=== PATIENT | male | born 1965 | race Caucasian/White ===

== ENCOUNTER 2018-02-22 09:22 | Inpatient (IN) | payer OTHER ==
[2018-02-22 09:59] VITALS: BMI 39.6
--- NOTE | 2018-02-22 13:49 | HP ---
CIWA Score - CIWA Score Nausea/Vomitin Muscle Tremors: 4-Moderate,w/Arms Extend Anxiety: 5 Agitation: 4-Moderately Restless Paroxysmal Sweats: 1-Minimal Palms Moist Orientation: 0-Oriented Tacttile Disturbances: 2-Mild Itch/Numbness/Burn (itchy skin) Auditory Disturbances: 0-None Visual Disturbances: 0-None Headache: 0-None Present CIWA-Ar Total Score: 19 Admission ROS S - HPI Chief Complaint: ALCOHOL WITHDRAWAL SX Allergies/Adverse Reactions: Allergies Allergy/AdvReac Type Severity Reaction Status Date / Time penicillin G Allergy Severe Swelling Verified 02/22/18 10:33 History of Present Illness: 52 Y/O MALE WITH A HX OF ALCOHOL DEPENDENCE SEEKING DETOX [place]. PT WAS HERE ON 02/19/18 BUT WAS SEVERELY INTOXICATED AND BELLIGERENT AND WAS [facility]AKEN BY [facility] DEPT TEAM TO [facility] FOR STABILISATION PT WAS VERY HOSTILE TO THE EMS THAT FIRST ARRIVED TO TAKE HIM TO ER. PT NOW STATES THAT HE LEFT THE ER ON SAME DAY AND [facility] CONTINUED [facility] AND EMS GOT HIM AND [facility]. HE REPORTS WAS THERE TILL HE "SIGNED HIMSELF OUT AT ABOUT 4:15 A.M" THIS MORNING AND ALSO DRANK ALCOHOL AFTER THAT THEN WAS BROUGHT BACK HERE TO DETOX BY HIS FRIEND. PT REPORTS HIS PMD IS DR. MCLEOD AT [facility] BUT IN THE PROCESS OF GETTING ANOTHER DOCTOR PER PATIENT. Exam Limitations: No Limitations - Ebola screening Have you traveled outside of the country in the last 21 days: No Have you had contact with anyone from an Ebola affected area: No Have you been sick,other than usual withdrawal symptoms: No Do you have a fever: No - Review of Systems Constitutional: Chills, Loss of Appetite, Night Sweats, Changes in sleep EENT: reports: Blurred Vision (WEARS READING GLASSES), Tearing, Tinnitus, Nose Congestion, Dental Problems (MISSING TEETH-ON PARTIAL TOOTH ON BOTTOM.) Respiratory: reports: Shortness of Breath (HX COPD AND ASTHMA), Wheezing Cardiac: reports: Lightheadedness GI: reports: Diarrhea, Nausea, Poor Appetite, Vomiting : reports: Frequency Musculoskeletal: reports: Muscle Pain Integumentary: reports: Dryness Neuro: reports: Headache, Tremors, Unsteady Gait, Dizziness Endocrine: reports: No Symptoms Reported Psychiatric: reports: Orientated x3, Anxious, Depressed Other Systems: Reviewed and Negative Patient History - Patient Medical History Hx Anemia: No Hx Asthma: Yes (ALBUTEROL INH AND NEBULIZER TX AT HOME) Hx Chronic Obstructive Pulmonary Disease (COPD): Yes Hx Cardiac Disorders: No Hx Hypertension: No Hx Hypercholesterolemia: No HX Cerebrovascular Accident: No Hx Seizures: No Hx Diabetes: No Hx Gastrointestinal Disorders: Yes (SELTER WATER/ CLUB SODA) Hx Genitourinary Disorders: No Hx Sexually Transmitted Disorders: No (DENIES) Hx Renal Disease (ESRD): No Hx Human Immunodeficiency Virus (HIV): No (NEGATIVE HX) Hx Hepatitis C: No Hx Depression: Yes (WAS ON MED, BUT NOT CURRENTLY TAKING IT.) Hx Suicide Attempt: No (DENIES S/I) Hx Schizophrenia: No - Patient Surgical History Past Surgical History: Yes Hx Neurologic Surgery: No Hx Cataract Extraction: No Hx Cardiac Surgery: No Hx Lung Surgery: No Hx Breast Surgery: No Hx Breast Biopsy: No Hx Abdominal Surgery: No Hx Appendectomy: No Hx Cholecystectomy: No Hx Genitourinary Surgery: No Hx Orthopedic Surgery: Yes (left cheekbone in 1991/left foot in 1996) Anesthesia Reaction: No - PPD History Previous Implant?: Yes Documented Results: Positive w/o proof Implanted On Prior [facility] Admission?: No Results: CXR TBD PPD to be Administered?: No - Reproductive History Patient is a Female of Child Bearing Age (11 -55 yrs old): No (MALE) - Smoking Cessation Smoking history: Current every day smoker Have you smoked in the past 12 months: Yes Aproximately how many cigarettes per day: 20 Hx Chewing Tobacco Use: No Initiated information on smoking cessation: Yes 'Breaking Loose' booklet given: 02/22/18 - Substance & Tx. History Hx Alcohol Use: Yes (WHISKEY) Hx Substance Use: No Substance Use Type: Alcohol Hx Substance Use Treatment: Yes (LAST [place] [facility]) - Substances Abused Alcohol-whisky Route: Oral Frequency: Daily Amount used: 1 liter Age of first use: 12 Date of Last Use: 02/22/18 Family Disease History - Family Disease History Family History: Unable to Obtain Admission Physical Exam BHS - Vital Signs Vital Signs: Vital Signs - 24 hr 02/22/18 09:56 Temperature 98 F Pulse Rate 71 Respiratory 17 Rate Blood Pressure 140/80 - Physical General Appearance: Yes: Moderate Distress, Alcohol on Breath, Irritable, Anxious HEENTM: Yes: EOMI, Normocephalic, NOREEN, Pharynx Normal Respiratory: Yes: Chest Non-Tender, Lungs Clear, Normal Breath Sounds, No Respiratory Distress Neck: Yes: Supple, Trachea in good position Breast: Yes: Breast Exam Deferred Cardiology: Yes: Regular Rhythm, Regular Rate, S1, S2 Abdominal: Yes: Flat Genitourinary: Yes: Other (N/C) Back: Yes: Within Normal Limits Musculoskeletal: Yes: full range of Motion, Gait Steady Extremities: Yes: Normal Range of Motion, Non-Tender, Tremors Neurological: Yes: baby counselor II-XII NML intact, Fully Oriented, Alert, Motor Strength 5/5 Integumentary: Yes: Dry, Warm, Other (RESOLVING BRUISE AREA- SLIGHTLY BLACK/ BLUE ON LEFT LOWER LEG.) Lymphatic: Yes: Within Normal Limits - Diagnostic (1) Alcohol dependence with uncomplicated withdrawal Current Visit: Yes Status: Acute (2) Asthma Current Visit: Yes Status: Acute Qualifiers: Asthma severity: mild Asthma persistence: unspecified Asthma complication type: uncomplicated Qualified Code(s): J45.909 - Unspecified asthma, uncomplicated (3) COPD (chronic obstructive pulmonary disease) Current Visit: Yes Status: Acute Qualifiers: Chronic bronchitis type: unspecified (4) Nicotine dependence Current Visit: Yes Status: Acute Qualifiers: Nicotine product type: cigarettes Substance use status: in withdrawal Qualified Code(s): F17.213 - Nicotine dependence, cigarettes, with withdrawal Cleared for Admission [facility] - Detox or Rehab [facility] Level of Care: Medically Managed Detox Regimen/Protocol: Librium [facility] Breath Alcohol Content Breath Alcohol Content: 0.041 Urine Drug Screen - Results Drug Screen Negative: No Urine Drug Screen Results: BZO-Benzodiazepines
[2018-02-22] MEDS ORDERED: LOPERAMIDE HCL 2 MG CAPSULE PO PRN (14:17)
[2018-02-22] MEDS ORDERED: guaiFENesin/D-METHORPHAN HB 10 ML UNIT-DOSE CUPS PO PRN (14:17)
[2018-02-22] MEDS ORDERED: ACETAMINOPHEN 325 MG TABLET (FP) PO PRN (14:17)
[2018-02-22] MEDS ORDERED: MAGNESIUM HYDROX 2400MG/30ML ORAL SUSPENSION 30 ML CUP PO PRN (14:17)
[2018-02-22] MEDS ORDERED: MAG HYDROX/AL HYDROX/SIMETH 30 ML UNIT-DOSE CUP PO PRN (14:17)
[2018-02-22] MEDS ORDERED: hydrOXYzine PAMOATE 50 MG CAPSULE (FP) PO PRN (14:17)
[2018-02-22] MEDS ORDERED: NICOTINE POLACRILEX 4 MG GUM BC PRN (14:17)
[2018-02-22] MEDS ORDERED: IBUPROFEN 400 MG TABLET (FP) PO PRN (14:17)
[2018-02-22] MEDS ORDERED: MENTHOL/PHENOL 1 EACH UD MM PRN (14:17)
[2018-02-22] MEDS ORDERED: MAGNESIUM CITRATE 300 ML BOTTLE PO PRN (14:17)
[2018-02-22] MEDS ORDERED: P-EPHED 60MG/TRIPROLIDI 2.5MG TABLET PO PRN (14:17)
[2018-02-22] MEDS ORDERED: chlordiazePOXIDE HCL 25 MG CAPSULE PO PRN (14:21)
[2018-02-22] MEDS ORDERED: diazePAM 5 MG TABLET PO ONE (15:30)
[2018-02-22] MEDS: NICOTINE 21 MG/24 HOURS TOPICAL PATCH TD SCH (15:50)
[2018-02-22] MEDS ORDERED: chlordiazePOXIDE HCL 25 MG CAPSULE PO SCH (17:00)
[2018-02-22] MEDS: MELATONIN 5 MG TABLETS PO PRN (22:19)
[2018-02-22] MEDS: diazePAM 5 MG TABLET PO SCH (22:19)
[2018-02-22] MEDS: THIAMINE HCL 100 MG TABLET (FP) PO SCH (22:19)
[2018-02-23] MEDS: diazePAM 5 MG TABLET PO SCH ×3 (05:27→22:22)
[2018-02-23] MEDS: ALBUTEROL SO4 18 GM HFA INHALER IH PRN ×2 (05:30→10:29)
[2018-02-23] MEDS: PRENATAL VITAMINS W/ FOLIC ACID TABLET (FP) PO SCH (10:29)
[2018-02-23] MEDS: diazePAM 5 MG TABLET PO PRN (10:29)
[2018-02-23] MEDS: NICOTINE 21 MG/24 HOURS TOPICAL PATCH TD SCH (10:29)
[2018-02-23 10:46] LABS: HEMATOCRIT 31.8 % (35.4-49); HEMOGLOBIN 11.1 GM/dL (11.7-16.9); MCH 36.5 pg (25.7-33.7); MCHC 34.8 g/dl (32.0-35.9); MEAN CELL VOLUME 104.8 fl (80-96); MEAN PLT VOLUME 8.1 fl (7.5-11.1); PLATELET COUNT 219 K/MM3 (134-434); RBC 3.04 M/mm3 (4.00-5.60); RDW 13.9 % (11.9-15.9); WHITE BLOOD COUNT 5.3 K/mm3 (4.0-10.0)
[2018-02-23 10:51] LABS: ALBUMIN 3.9 g/dl (3.4-5.0); ANION GAP 10 (8-16); BLOOD UREA NITROGEN 6 mg/dL (7-18); CALCIUM 8.7 mg/dL (8.5-10.1); CHLORIDE 106 mmol/L (98-107); CO2 26 mmol/L (21-32); CREATININE 0.7 mg/dL (0.7-1.3); GLUCOSE,RANDOM 85 mg/dL (74-106); POTASSIUM 3.5 mmol/L (3.5-5.1); SGOT/AST 23 U/L (15-37); SGPT/ALT 34 U/L (12-78); SODIUM 142 mmol/L (136-145)
[2018-02-23 10:53] LABS: ALK PHOS 79 U/L (45-117); BILIRUBIN,TOTAL 0.5 mg/dL (0.2-1.0); TOT PROT 6.9 g/dl (6.4-8.2)
--- NOTE | 2018-02-23 11:56 | CONSULT ---
[facility] Psychiatric Consult - Data Date of interview: 02/23/18 Admission source: [facility] Identifying data: First admission to [facility] for this 52 y/o Iranian-born male seeking detox treatment on for alcohol dependence.Patient is single,a father of one,domiciled,unemployed (trained as a environmental advisor) and reportedly deprived of any source of income. Substance Abuse History: Confirmed by the patient in this session.Details in current [facility] report : Smoking history: Current every day smoker. Have you smoked in the past 12 months: Yes. Aproximately how many cigarettes per day: 20. Hx Chewing Tobacco Use: No. Initiated information on smoking cessation: Yes. 'Breaking Loose' booklet given: 02/22/18. - Substance & Tx. History. Hx Alcohol Use: Yes (WHISKEY). Hx Substance Use: No. Substance Use Type: Alcohol. Hx Substance Use Treatment: Yes (LAST [place] [facility]). - Substances Abused. Alcohol-whisky. Route: Oral. Frequency: Daily. Amount used: 1 liter. Age of first use: 12. Date of Last Use: 02/22/18 Medical History: Bronchial asthma,COPD,obesity and a remote history of surgeries (left foot + left cheekbone). Psychiatric History: Patient admits to one psychiatric hospitalization (1999) at [facility] in [facility].Diagnosed with PTSD.Mr Gracia declares that he does not take psychotropic medications or keep contact with psychiatrists.Reports assiduous attendance to AA meetings in the community.Patient denies history of suicide attempts. Physical/Sexual Abuse/Trauma History: Patient declines to discuss this domain. Additional Comment: Urine Drug Screen Results: BZO-Benzodiazepines.Noted. Mental Status Exam - Mental Status Exam Alert and Oriented to: Time, Place, Person Cognitive Function: Good Patient Appearance: Well Groomed Mood: Withdrawn, Irritable Affect: Mood Congruent Patient Behavior: Appropriate, Cooperative Speech Pattern: Clear Voice Loudness: Normal Thought Process: Intact, Goal Oriented Thought Disorder: Not Present Hallucinations: Denies Suicidal Ideation: Denies Homicidal Ideation: Denies Insight/Judgement: Fair Sleep: Well Appetite: Good Muscle strength/Tone: Normal Gait/Station: Normal Psychiatric Findings - Problem List ([place] 1, 2,3) (1) Alcohol dependence with uncomplicated withdrawal Current Visit: Yes Status: Acute (2) Nicotine dependence Current Visit: Yes Status: Acute Qualifiers: Nicotine product type: cigarettes Substance use status: in withdrawal Qualified Code(s): F17.213 - Nicotine dependence, cigarettes, with withdrawal - Initial Treatment Plan Initial Treatment Plan: Psychoeducation.Detoxification in progress.Observation.
--- NOTE | 2018-02-23 14:40 | EKG ---
Test Reason : Blood Pressure : / mmHG Vent. Rate : 070 BPM Atrial Rate : 070 BPM P-R Int : 130 ms QRS Dur : 096 ms QT Int : 420 ms P-R-T Axes : 000 089 101 degrees QTc Int : 453 ms NORMAL SINUS RHYTHM NORMAL ECG NO PREVIOUS ECGS AVAILABLE Confirmed by MD Salazar, Jay ([id number]) on 02/23/2018 2:39:48 PM Referred By: Confirmed By:Jay Lincoln MD
--- NOTE | 2018-02-23 16:23 | PN ---
S CIWA - CIWA Score Nausea/Vomitin-No Nausea/No Vomiting Muscle Tremors: 3 Anxiety: 5 Agitation: 5 Paroxysmal Sweats: 3 Orientation: 0-Oriented Tacttile Disturbances: 3-Moderate Itch/Numb/Burn Auditory Disturbances: 0-None Visual Disturbances: 0-None Headache: 0-None Present CIWA-Ar Total Score: 19 BHS Progress Note (SOAP) Subjective: Interrupted Sleep, Body Aches, Anxious, Agitated, Sweating. Objective: PATIENT A & O X 3, OBSERVED AMBULATING ON UNIT. NO ACUTE DISTRESS. 02/23/18 16:21 Vital Signs Temperature 96.9 F L 02/23/18 09:52 Pulse Rate 53 L 02/23/18 09:52 Respiratory Rate 18 02/23/18 13:24 Blood Pressure 115/66 02/23/18 09:52 O2 Sat by Pulse Oximetry (%) Laboratory Tests 02/23/18 02/23/18 02/23/18 06:00 06:00 06:00 WBC 5.3 RBC 3.04 L Hgb 11.1 L Hct 31.8 L MCV 104.8 H MCH 36.5 H MCHC 34.8 RDW 13.9 Plt Count 219 MPV 8.1 Sodium 142 Potassium 3.5 Chloride 106 Carbon Dioxide 26 Anion Gap 10 BUN 6 L Creatinine 0.7 Creat Clearance w eGFR > 60 Random Glucose 85 Calcium 8.7 Total Bilirubin 0.5 AST 23 ALT 34 Alkaline Phosphatase 79 Total Protein 6.9 Albumin 3.9 RPR Titer Nonreactive LABS NOTED. UA RESULTS PENDING. 02/23/18 16:22 Assessment: 02/23/18 16:22 WITHDRAWAL SYMPTOMS. Plan: CONTINUE DETOX. INCREASE DAILY PO FLUID INTAKE.
[2018-02-23] MEDS ORDERED: chlordiazePOXIDE HCL 25 MG CAPSULE PO SCH (17:00)
[2018-02-23] MEDS: THIAMINE HCL 100 MG TABLET (FP) PO SCH (22:22)
[2018-02-23] MEDS: MELATONIN 5 MG TABLETS PO PRN (22:23)
[2018-02-24] MEDS: PRENATAL VITAMINS W/ FOLIC ACID TABLET (FP) PO SCH (09:41)
[2018-02-24] MEDS: NICOTINE 21 MG/24 HOURS TOPICAL PATCH TD SCH (09:41)
[2018-02-24] MEDS: diazePAM 5 MG TABLET PO SCH ×2 (09:41→22:31)
[2018-02-24] MEDS: ALBUTEROL SO4 2.5/IPRATROPIUM 0.5 INH SOL 3 ML VIAL.NEB. NEB PRN (14:48)
--- NOTE | 2018-02-24 14:54 | PN ---
S CIWA - CIWA Score Nausea/Vomitin-No Nausea/No Vomiting Muscle Tremors: 4-Moderate,w/Arms Extend Anxiety: 5 Agitation: 3 Paroxysmal Sweats: 1-Minimal Palms Moist Orientation: 0-Oriented Tacttile Disturbances: 0-None Auditory Disturbances: 0-None Visual Disturbances: 0-None Headache: 0-None Present CIWA-Ar Total Score: 13 BHS Progress Note (SOAP) Subjective: IRRITABILITY,A NXIETY,TREMORS. Objective: 02/24/18 14:51 Vital Signs Temperature 98.4 F 02/24/18 13:18 Pulse Rate 59 L 02/24/18 13:18 Respiratory Rate 18 02/24/18 13:18 Blood Pressure 109/65 02/24/18 13:18 O2 Sat by Pulse Oximetry (%) Laboratory Tests 02/23/18 02/23/18 02/23/18 06:00 06:00 06:00 WBC 5.3 RBC 3.04 L Hgb 11.1 L Hct 31.8 L MCV 104.8 H MCH 36.5 H MCHC 34.8 RDW 13.9 Plt Count 219 MPV 8.1 Sodium 142 Potassium 3.5 Chloride 106 Carbon Dioxide 26 Anion Gap 10 BUN 6 L Creatinine 0.7 Creat Clearance w eGFR > 60 Random Glucose 85 Calcium 8.7 Total Bilirubin 0.5 AST 23 ALT 34 Alkaline Phosphatase 79 Total Protein 6.9 Albumin 3.9 RPR Titer Nonreactive ADMISSION UA NEEDED. Assessment: 02/24/18 14:52 WITHDRAWAL SX Plan: CONTINUE DETOX UA SPECIMEN NEEDED FROM PT TODAY
[2018-02-24] MEDS ORDERED: chlordiazePOXIDE 5 MG CAPSULE PO SCH (17:00)
[2018-02-24 21:11] LABS: URINE APPEARANCE SLCLOUDY; URINE BILIRUBIN NEGATIVE (<2.0 mg/dL); URINE COLOR YELLOW; URINE GLUCOSE (UA) NEGATIVE (NEGATIVE); URINE KETONE NEGATIVE (NEGATIVE); URINE LEUK ESTERASE NEGATIVE (NEGATIVE); URINE NITRITE NEGATIVE (NEGATIVE); URINE PROTEIN NEGATIVE (NEGATIVE); URINE UROBILINOGEN NEGATIVE mg/dL (0.2-1.0)
[2018-02-24] MEDS: THIAMINE HCL 100 MG TABLET (FP) PO SCH (22:31)
[2018-02-24] MEDS: MELATONIN 5 MG TABLETS PO PRN (22:31)
[2018-02-25] MEDS: ALBUTEROL SO4 2.5/IPRATROPIUM 0.5 INH SOL 3 ML VIAL.NEB. NEB PRN ×3 (01:00→20:44)
[2018-02-25] MEDS: diazePAM 5 MG TABLET PO PRN (06:55)
[2018-02-25] MEDS: ALBUTEROL SO4 18 GM HFA INHALER IH PRN (06:56)
[2018-02-25] MEDS: diazePAM 5 MG TABLET PO SCH ×2 (10:04→22:14)
[2018-02-25] MEDS: PRENATAL VITAMINS W/ FOLIC ACID TABLET (FP) PO SCH (10:04)
[2018-02-25] MEDS: NICOTINE 21 MG/24 HOURS TOPICAL PATCH TD SCH (10:04)
--- NOTE | 2018-02-25 11:23 | PN ---
BHS Progress Note (SOAP) Subjective: ANXIETY-"PANIC ATTACK",SWEATS,SLIGHT TREMORS. Objective: 02/25/18 11:23 Vital Signs Temperature 95.8 F L 02/25/18 09:32 Pulse Rate 64 02/25/18 09:32 Respiratory Rate 18 02/25/18 09:32 Blood Pressure 102/64 02/25/18 09:32 O2 Sat by Pulse Oximetry (%) Laboratory Last Values WBC 5.3 K/mm3 (4.0-10.0) 02/23/18 06:00 RBC 3.04 M/mm3 (4.00-5.60) L 02/23/18 06:00 Hgb 11.1 GM/dL (11.7-16.9) L 02/23/18 06:00 Hct 31.8 % (35.4-49) L 02/23/18 06:00 MCV 104.8 fl (80-96) H 02/23/18 06:00 MCH 36.5 pg (25.7-33.7) H 02/23/18 06:00 MCHC 34.8 g/dl (32.0-35.9) 02/23/18 06:00 RDW 13.9 % (11.9-15.9) 02/23/18 06:00 Plt Count 219 K/MM3 (134-434) 02/23/18 06:00 MPV 8.1 fl (7.5-11.1) 02/23/18 06:00 Sodium 142 mmol/L (136-145) 02/23/18 06:00 Potassium 3.5 mmol/L (3.5-5.1) 02/23/18 06:00 Chloride 106 mmol/L (98-107) 02/23/18 06:00 Carbon Dioxide 26 mmol/L (21-32) 02/23/18 06:00 Anion Gap 10 (8-16) 02/23/18 06:00 BUN 6 mg/dL (7-18) L 02/23/18 06:00 Creatinine 0.7 mg/dL (0.7-1.3) 02/23/18 06:00 Creat Clearance w eGFR > 60 (>60) 02/23/18 06:00 Random Glucose 85 mg/dL (74-106) 02/23/18 06:00 Calcium 8.7 mg/dL (8.5-10.1) 02/23/18 06:00 Total Bilirubin 0.5 mg/dL (0.2-1.0) 02/23/18 06:00 AST 23 U/L (15-37) 02/23/18 06:00 ALT 34 U/L (12-78) 02/23/18 06:00 Alkaline Phosphatase 79 U/L (45-117) 02/23/18 06:00 Total Protein 6.9 g/dl (6.4-8.2) 02/23/18 06:00 Albumin 3.9 g/dl (3.4-5.0) 02/23/18 06:00 Urine Color Yellow 02/24/18 15:13 Urine Appearance Slcloudy 02/24/18 15:13 Urine pH 8.0 (5.0-8.0) 02/24/18 15:13 Ur Specific [place] 1.014 (1.001-1.035) 02/24/18 15:13 Urine Protein Negative (NEGATIVE) 02/24/18 15:13 Urine Glucose (UA) Negative (NEGATIVE) 02/24/18 15:13 Urine Ketones Negative (NEGATIVE) 02/24/18 15:13 Urine Blood Negative (NEGATIVE) 02/24/18 15:13 Urine Nitrite Negative (NEGATIVE) 02/24/18 15:13 Urine Bilirubin Negative (<2.0 mg/dL) 02/24/18 15:13 Urine Urobilinogen Negative mg/dL (0.2-1.0) 02/24/18 15:13 Ur Leukocyte Esterase Negative (NEGATIVE) 02/24/18 15:13 RPR Titer Nonreactive (NONREACTIVE) 02/23/18 06:00 Assessment: 02/25/18 11:23 WITHDRAWAL SX Plan: CONTINUE DETOX
[2018-02-25] MEDS ORDERED: chlordiazePOXIDE HCL 10 MG CAPSULE PO SCH (17:00)
[2018-02-25] MEDS: THIAMINE HCL 100 MG TABLET (FP) PO SCH (22:14)
[2018-02-25] MEDS: MELATONIN 5 MG TABLETS PO PRN (22:15)
[2018-02-26 09:09] VITALS: BP 124/67; PULSE 60; TEMP 98.8
[2018-02-26] MEDS: PRENATAL VITAMINS W/ FOLIC ACID TABLET (FP) PO SCH (09:19)
[2018-02-26] MEDS ORDERED: diazePAM 5 MG TABLET PO SCH (10:00)
--- NOTE | 2018-02-26 14:55 | PN ---
S Progress Note (SOAP) Subjective: DETOX COMPLETED. ALERT O X 3. NAD. PT REFUSED CXR FOR ADMISSION SCREENING. Objective: 02/26/18 14:54 Vital Signs Temperature 98.8 F 02/26/18 09:08 Pulse Rate 60 02/26/18 09:08 Respiratory Rate 18 02/26/18 09:08 Blood Pressure 124/67 02/26/18 09:08 O2 Sat by Pulse Oximetry (%) Laboratory Last Values WBC 5.3 K/mm3 (4.0-10.0) 02/23/18 06:00 RBC 3.04 M/mm3 (4.00-5.60) L 02/23/18 06:00 Hgb 11.1 GM/dL (11.7-16.9) L 02/23/18 06:00 Hct 31.8 % (35.4-49) L 02/23/18 06:00 MCV 104.8 fl (80-96) H 02/23/18 06:00 MCH 36.5 pg (25.7-33.7) H 02/23/18 06:00 MCHC 34.8 g/dl (32.0-35.9) 02/23/18 06:00 RDW 13.9 % (11.9-15.9) 02/23/18 06:00 Plt Count 219 K/MM3 (134-434) 02/23/18 06:00 MPV 8.1 fl (7.5-11.1) 02/23/18 06:00 Sodium 142 mmol/L (136-145) 02/23/18 06:00 Potassium 3.5 mmol/L (3.5-5.1) 02/23/18 06:00 Chloride 106 mmol/L (98-107) 02/23/18 06:00 Carbon Dioxide 26 mmol/L (21-32) 02/23/18 06:00 Anion Gap 10 (8-16) 02/23/18 06:00 BUN 6 mg/dL (7-18) L 02/23/18 06:00 Creatinine 0.7 mg/dL (0.7-1.3) 02/23/18 06:00 Creat Clearance w eGFR > 60 (>60) 02/23/18 06:00 Random Glucose 85 mg/dL (74-106) 02/23/18 06:00 Calcium 8.7 mg/dL (8.5-10.1) 02/23/18 06:00 Total Bilirubin 0.5 mg/dL (0.2-1.0) 02/23/18 06:00 AST 23 U/L (15-37) 02/23/18 06:00 ALT 34 U/L (12-78) 02/23/18 06:00 Alkaline Phosphatase 79 U/L (45-117) 02/23/18 06:00 Total Protein 6.9 g/dl (6.4-8.2) 02/23/18 06:00 Albumin 3.9 g/dl (3.4-5.0) 02/23/18 06:00 Urine Color Yellow 02/24/18 15:13 Urine Appearance Slcloudy 02/24/18 15:13 Urine pH 8.0 (5.0-8.0) 02/24/18 15:13 Ur Specific [place] 1.014 (1.001-1.035) 02/24/18 15:13 Urine Protein Negative (NEGATIVE) 02/24/18 15:13 Urine Glucose (UA) Negative (NEGATIVE) 02/24/18 15:13 Urine Ketones Negative (NEGATIVE) 02/24/18 15:13 Urine Blood Negative (NEGATIVE) 02/24/18 15:13 Urine Nitrite Negative (NEGATIVE) 02/24/18 15:13 Urine Bilirubin Negative (<2.0 mg/dL) 02/24/18 15:13 Urine Urobilinogen Negative mg/dL (0.2-1.0) 02/24/18 15:13 Ur Leukocyte Esterase Negative (NEGATIVE) 02/24/18 15:13 RPR Titer Nonreactive (NONREACTIVE) 02/23/18 06:00 Assessment: 02/26/18 14:54 MEDICALLY STABLE Plan: D/C PT TODAY PT TO FOLLOW UP AT [facility] FOR REHAB PLANNED
--- NOTE | 2018-02-26 14:58 | DS ---
[facility] Detox Discharge Summary Admission Date: 02/22/18 Discharge Date: 02/26/18 - History Present History: Alcohol Dependence Additional Comments: DETOX COMPLETED. ALERT O X 3. NAD. PT REPORTS HAS PMD [facility] AT [place], [place] FOR MEDICAL MANAGEMENT NEEDED. - Physical Exam Results Vital Signs: Vital Signs Temperature 98.8 F 02/26/18 09:08 Pulse Rate 60 02/26/18 09:08 Respiratory Rate 18 02/26/18 09:08 Blood Pressure 124/67 02/26/18 09:08 O2 Sat by Pulse Oximetry (%) - Treatment Hospital Course: Detox Protocol Followed, Detoxed Safely, Responded well, Discharged Condition Good, Rehab Referral Accepted Patient has Accepted a Rehab Referral to: [facility] - Medication Discharge Medications: Ambulatory Orders Albuterol Sulfate Inhaler - [Ventolin Hfa Inhaler -] 2 inh PO Q4H PRN 02/22/18 - Diagnosis (1) Alcohol dependence with uncomplicated withdrawal Status: Acute (2) Asthma Status: Chronic Qualifiers: Asthma severity: mild Asthma persistence: unspecified Asthma complication type: uncomplicated Qualified Code(s): J45.909 - Unspecified asthma, uncomplicated (3) COPD (chronic obstructive pulmonary disease) Status: Chronic Qualifiers: COPD type: unspecified COPD Qualified Code(s): J44.9 - Chronic obstructive pulmonary disease, unspecified (4) Nicotine dependence Status: Acute Qualifiers: Nicotine product type: cigarettes Substance use status: in withdrawal Qualified Code(s): F17.213 - Nicotine dependence, cigarettes, with withdrawal - AMA Did Patient Leave Against Medical Advice: No
== END 2018-02-26 09:25 | disposition home or self-care (01) | DRG 775 ==
LOC: YASAS 09:22 → Y3N 15:09
PROVIDERS: ADMIT Internal Medicine; ATTEND Internal Medicine
PROC: HZ2ZZZZ Detoxification Services for Substance Abuse Treatment (ICD-10-PCS; principal; 2018-02-22)
DX: F10.230 Alcohol dependence with withdrawal, uncomplicated (principal); F17.213 Nicotine dependence, cigarettes, with withdrawal; J45.909 Unspecified asthma, uncomplicated; J44.9 Chronic obstructive pulmonary disease, unspecified; E66.9 Obesity, unspecified; Z68.39 Body mass index [BMI] 39.0-39.9, adult; Z88.0 Allergy status to penicillin
CPT/HCPCS: 36415; 80053; 81003; 85027; 86593; 93005; 93010; 94640; J7620